=== PATIENT | female | born 1950 | race Caucasian/White ===

== ENCOUNTER 2020-01-07 12:48 | Outpatient (CLI) | payer MEDICARE | END 2020-01-07 23:59 | disposition home or self-care (01) | LOC: CFH 12:48 | PROVIDERS: ATTEND Family Medicine | DX: Z02.9 Encounter for administrative examinations, unspecified (principal) ==

== ENCOUNTER → 2020-09-30 | Outpatient (CLI) | payer MEDICARE | END | disposition home or self-care (01) | LOC: CFH 07:55 | PROVIDERS: ATTEND Specialist | DX: C50.911 Malignant neoplasm of unspecified site of right female breast (principal); N64.4 Mastodynia; R92.1 Mammographic calcification found on diagnostic imaging of breast; Z85.41 Personal history of malignant neoplasm of cervix uteri | CPT/HCPCS: 76642; 77061; 77065; G0279 ==